=== PATIENT | female | born 1940 | race Caucasian/White ===

== ENCOUNTER 2017-03-25 06:20 | Emergency (ER) | payer BC, MEDICARE ==
[~2017-03-25] VITALS: Ht 162.6 cm; Wt 113.4 kg
[2017-03-25 10:12] LABS: Basophils # (auto) 0.1 uL; Basophils % (auto) 0.7 % (0.0-2.0); Eosinophils # (auto) 0.1 uL; Eosinophils % (auto) 1.1 % (0.0-7.0); Hematocrit 41.5 % (36.0-46.0); Lymphocytes # (auto) 1.5 uL; Lymphocytes % (auto) 20.1 % (10.0-50.0); Mean Corpuscular Hemoglobin 31.1 pg (28.0-32.0); Mean Corpuscular Hgb Conc. 33.7 g/dL (32.0-36.0); Mean Corpuscular Volume 92.4 fL (80.0-100.0); Mean Platelet Volume 8.9 fL (6.9-10.8); Monocytes # (auto) 0.6 uL; Monocytes % (auto) 8.2 % (0.0-12.0); Neutrophils # (auto) 5.1 uL; Neutrophils % (auto) 69.9 % (37.0-80.0); Platelet Count (auto) 181 10^3/uL (140-450); Red Cell Distribution Width 14.8 % (11.8-14.3); White Blood Cell 7.3 10^3/uL (4.4-10.8)
[2017-03-25 10:21] LABS: Albumin 2.7 g/dL (3.4-5.0); BUN/Creatinine Ratio 21.6; Calcium 8.2 mg/dL (8.5-10.1); Potassium 4.2 mmol/L (3.5-5.1)
[2017-03-25 10:23] LABS: INR 1.03 (0.9-1.15); Partial Thromboplastin Time 30.4 sec (22.64-33.71); Prothrombin Time 11.2 sec (9.37-12.3)
[2017-03-25 10:24] LABS: Bilirubin, Total 0.4 mg/dL (0.2-1.0); Total Protein 6.5 g/dL (6.4-8.2)
[2017-03-25] MEDS: HYDROcodone-ACET 5/325MG TAB PO ONE (10:27)
[2017-03-25] MEDS: CLOPIDOGREL BISULFATE 75 MG TAB PO ONE (13:17)
[2017-03-25 13:24] VITALS: BP 170/72
== END 2017-03-25 13:39 | disposition home or self-care (01) ==
LOC: ER 06:23
DX: D68.9 Coagulation defect, unspecified (principal); R04.0 Epistaxis; I50.9 Heart failure, unspecified; I11.0 Hypertensive heart disease with heart failure; I48.91 Unspecified atrial fibrillation; Z88.6 Allergy status to analgesic agent; Z88.8 Allergy status to other drugs, medicaments and biological substances
CPT/HCPCS: 36415; 71010; 80053; 85025; 85610; 85730; 93005; 94761

== ENCOUNTER 2017-07-17 06:17 | Inpatient (IN) | payer BC, OTHER ==
[~2017-07-17] VITALS: Ht 162.6 cm; Wt 119.9 kg
[2017-07-17] MEDS ORDERED: SODIUM CHLORIDE 0.9% 1,000 ML IV ONE (07:00)
[2017-07-17 07:54] LABS: Basophils # (auto) 0.2 uL; Basophils % (auto) 2.8 % (0.0-2.0); Eosinophils # (auto) 0.1 uL; Eosinophils % (auto) 1.3 % (0.0-7.0); Hematocrit 46.1 % (36.0-46.0); Hemoglobin 15.1 g/dL (12.2-16.2); Lymphocytes # (auto) 2.4 uL; Lymphocytes % (auto) 33.5 % (10.0-50.0); Mean Corpuscular Hemoglobin 30.1 pg (28.0-32.0); Mean Corpuscular Hgb Conc. 32.8 g/dL (32.0-36.0); Mean Corpuscular Volume 91.7 fL (80.0-100.0); Monocytes # (auto) 0.8 uL; Monocytes % (auto) 10.8 % (0.0-12.0); Neutrophils # (auto) 3.7 uL; Neutrophils % (auto) 51.6 % (37.0-80.0); Nucleated Red Blood Cells % 0.1 %; Platelet Count (auto) 270 10^3/uL (140-450); Red Blood Cells 5.03 10^6/uL (4.0-5.20); Red Cell Distribution Width 15.1 % (11.8-14.3); White Blood Cell 7.2 10^3/uL (4.4-10.8)
[2017-07-17] MEDS ORDERED: DILTIAZEM HCL 50 MG/10 ML VIAL IV ONE (07:54)
[2017-07-17] MEDS ORDERED: DILTIAZEM HCL 25 MG/5 ML VIAL IV ONE (08:00)
[2017-07-17 08:12] LABS: INR 0.93 (0.9-1.15); Partial Thromboplastin Time 27.3 sec (22.64-33.71); Prothrombin Time 10.1 sec (9.37-12.3)
[2017-07-17 08:21] LABS: Alanine Aminotransferase 13 U/L (13-56); Alkaline Phosphatase 27 U/L (45-117); Anion Gap 11 (5-15); Aspartate Aminotransferase 15 U/L (15-37); BUN/Creatinine Ratio 14.8; Bilirubin, Total 0.5 mg/dL (0.2-1.0); Blood Urea Nitrogen 12 mg/dL (7-18); Calcium 8.3 mg/dL (8.5-10.1); Carbon Dioxide 23 mmol/L (21-32); Chloride 108 mmol/L (98-107); GFR African American 89 mL/min; GFR Non-African American 73 mL/min; Glucose 99 mg/dL (74-106); Magnesium 2.4 mg/dL (1.6-2.6); Potassium 4.2 mmol/L (3.5-5.1); Sodium 142 mmol/L (136-145); Total Protein 7.2 g/dL (6.4-8.2)
[2017-07-17] MEDS ORDERED: IOHEXOL 350 MG/ML 100ML IJ ONE (10:42)
[2017-07-17] MEDS ORDERED: PROMETHAZINE HCL 25 MG/ML 1ML IV PRN (11:00)
[2017-07-17] MEDS ORDERED: AMIODARONE HCL 150 MG in D5W 5% 100 ML IV ONE (11:00)
[2017-07-17] MEDS ORDERED: TEMAZEPAM 15 MG CAP PO PRN (11:00)
[2017-07-17] MEDS ORDERED: LORazepam 0.5 MG TAB PO PRN (11:00)
[2017-07-17] MEDS ORDERED: ACETAMINOPHEN 500 MG TAB PO PRN (11:00)
[2017-07-17] MEDS ORDERED: LACTULOSE 20Gm/30ML SOLN PO PRN (11:00)
[2017-07-17] MEDS ORDERED: HYDROmorphone HCL 2 MG/ML VL IV PRN (11:00)
[2017-07-17] MEDS ORDERED: NITROGLYCERIN 0.4 MG SL TAB SL PRN (11:00)
[2017-07-17] MEDS ORDERED: AMIODARONE HCL 900 MG in DEXTROSE 500 ML IV SCH ×2 (11:01→17:01)
[2017-07-17] MEDS: CLOPIDOGREL BISULFATE 75 MG TAB PO SCH (11:15)
[2017-07-17] MEDS ORDERED: CARVEDILOL 3.125 MG TAB PO SCH (11:15)
[2017-07-17] MEDS ORDERED: ENOXAPARIN SOD 120 MG/0.8 ML SYRINGE SC SCH (11:30)
[2017-07-17] MEDS ORDERED: DIGOXIN (250MCG/ML) 2 ML AMPULE ONE (11:41)
[2017-07-17] MEDS ORDERED: CARVEDILOL 3.125 MG TAB PO ONE ×2 (11:45→12:00)
[2017-07-17] MEDS ORDERED: DIGOXIN (250MCG/ML) 2 ML AMPULE IV ONE (11:45)
[2017-07-17] MEDS: POTASSIUM CHL 20 Meq TABLET PO SCH (11:59)
[2017-07-17] MEDS: FUROSEMIDE 40 MG/4 ML VIAL IV SCH (11:59)
[2017-07-17] MEDS ORDERED: ENOXAPARIN SOD 120 MG/0.8 ML SYRINGE SC ONE (12:00)
[2017-07-17] MEDS ORDERED: LEVOTHYROXINE SODIUM 25 MCG TAB PO ONE (12:15)
[2017-07-17 13:41] LABS: Urine Bacteria NONE SEEN /hpf (None Seen); Urine Blood Negative /uL (Negative); Urine Specific Gravity 1.023 (1.001-1.035); Urine WBC <1 /hpf (0 - 5)
[2017-07-17] MEDS: HYDROcodone-ACET 5/325MG TAB PO PRN (19:48)
[2017-07-17] MEDS ORDERED: cloNIDine HCL 0.1 MG TAB ONE (21:38)
[2017-07-17] MEDS ORDERED: cloNIDine HCL 0.1 MG TAB PO ONE (21:45)
[2017-07-17 22:00] VITALS: BP 160/83
[2017-07-17] MEDS ORDERED: ATORVASTATIN 20 MG TAB PO SCH (22:00)
[2017-07-17] MEDS ORDERED: ENOXAPARIN SOD 80 MG/0.8ML SYRINGE SC SCH (22:00)
[2017-07-17] MEDS: CARVEDILOL 3.125 MG TAB PO SCH (22:00)
[2017-07-17 22:30] VITALS: BP 111/56
[2017-07-18 00:30] VITALS: BP 111/56
[2017-07-18 01:22] VITALS: BP 111/56
[2017-07-18] MEDS: HYDROcodone-ACET 5/325MG TAB PO PRN ×3 (02:12→09:34)
[2017-07-18] MEDS ORDERED: FURO40TA4 PO (04:43)
[2017-07-18] MEDS ORDERED: CLOP75TA28 PO (04:43)
[2017-07-18] MEDS ORDERED: HYDR-4683 PO (04:43)
[2017-07-18] MEDS ORDERED: ESTR1TAB3 PO (04:43)
[2017-07-18] MEDS ORDERED: METO25TA62 PO (04:43)
[2017-07-18] MEDS ORDERED: EZET10TA6 PO (04:43)
[2017-07-18] MEDS ORDERED: LOSA100T27 PO (04:43)
[2017-07-18] MEDS ORDERED: LEVO200T45 PO (04:43)
[2017-07-18] MEDS ORDERED: DRON400T PO (04:43)
[2017-07-18] MEDS ORDERED: FAMO-12 PO (04:43)
[2017-07-18] MEDS ORDERED: HYDR50TA15 PO (04:43)
[2017-07-18 05:45] LABS: Basophils # (auto) 0.1 uL; Basophils % (auto) 0.9 % (0.0-2.0); Eosinophils # (auto) 0.1 uL; Eosinophils % (auto) 1.9 % (0.0-7.0); Hematocrit 39.1 % (36.0-46.0); Hemoglobin 13.2 g/dL (12.2-16.2); Lymphocytes # (auto) 2.1 uL; Lymphocytes % (auto) 36.7 % (10.0-50.0); Mean Corpuscular Hgb Conc. 33.8 g/dL (32.0-36.0); Mean Corpuscular Volume 91.6 fL (80.0-100.0); Monocytes # (auto) 0.6 uL; Monocytes % (auto) 9.7 % (0.0-12.0); Neutrophils % (auto) 50.8 % (37.0-80.0); Nucleated Red Blood Cells % 0.1 %; Platelet Count (auto) 211 10^3/uL (140-450); Red Blood Cells 4.27 10^6/uL (4.0-5.20); Red Cell Distribution Width 14.9 % (11.8-14.3); White Blood Cell 5.8 10^3/uL (4.4-10.8)
[2017-07-18 06:08] LABS: Albumin 2.6 g/dL (3.4-5.0); BUN/Creatinine Ratio 17.2; Bilirubin, Total 0.3 mg/dL (0.2-1.0); Potassium 4.2 mmol/L (3.5-5.1); Total Protein 6.1 g/dL (6.4-8.2)
[2017-07-18 06:30] VITALS: BP 126/61
[2017-07-18] MEDS ORDERED: LEVOTHYROXINE SODIUM 112 MCG TAB PO SCH (07:00)
[2017-07-18] MEDS: CLOPIDOGREL BISULFATE 75 MG TAB PO SCH ×2 (09:30→09:34)
[2017-07-18] MEDS: POTASSIUM CHL 20 Meq TABLET PO SCH ×2 (09:30→09:34)
[2017-07-18] MEDS: CARVEDILOL 3.125 MG TAB PO SCH (09:30)
[2017-07-18] MEDS: FUROSEMIDE 40 MG/4 ML VIAL IV SCH (09:34)
[2017-07-18] MEDS ORDERED: AMIODARONE HCL 200 MG TAB PO SCH (10:00)
[2017-07-18] MEDS ORDERED: ASPirin 81 mg TAB PO SCH (10:00)
[2017-07-19 10:19] LABS: Free T3 2.3 pg/mL (2.3-4.2); Free T4 (Free Thyroxine) 1.47 ng/dL (0.89-1.76)
== END 2017-07-18 11:35 | disposition home or self-care (01) | DRG 308 ==
LOC: ER 06:17 → OVERFLOW 06:18 → TELE-WESTW 21:40
PROVIDERS: ADMIT Internal Medicine; ATTEND Internal Medicine
DX: I48.0 Paroxysmal atrial fibrillation (principal); I50.33 Acute on chronic diastolic (congestive) heart failure; E44.1 Mild protein-calorie malnutrition; E66.01 Morbid (severe) obesity due to excess calories; Z68.42 Body mass index [BMI] 45.0-49.9, adult; I11.0 Hypertensive heart disease with heart failure; I50.9 Heart failure, unspecified; E03.9 Hypothyroidism, unspecified; E78.5 Hyperlipidemia, unspecified; I25.10 Atherosclerotic heart disease of native coronary artery without angina pectoris; K21.9 Gastro-esophageal reflux disease without esophagitis; Z95.5 Presence of coronary angioplasty implant and graft; Z88.3 Allergy status to other anti-infective agents; Z88.8 Allergy status to other drugs, medicaments and biological substances
CPT/HCPCS: 36415; 71046; 71275; 80053; 80061; 81001; 82550; 83735; 83880; 84439; 84443; 84481; 84484; 85025; 85379; 85610; 85652; 85730; 86141; 93005; 93306; 94660; 94761; 96372; 96374; 96375; J7060

== ENCOUNTER 2018-05-23 16:55 | Emergency (ER) | payer OTHER ==
[~2018-05-23] VITALS: Ht 162.6 cm; Wt 108.9 kg
[~2018-05-23 16:55] MED LIST: APIX2.5T PO; CLOP75TA28 PO; CYA100I PO; ESTR1TAB3 PO; EZET10TA6 PO; FAMO-12 PO; FURO40TA4 PO; HYDR-4683 PO; HYDR50TA15 PO; LEVO200T7 PO; LOSA-49 PO; SOTA120T39 PO
[2018-05-23 17:00] VITALS: BP 144/85
[2018-05-23 17:51] LABS: INR 0.96 (0.9-1.15); Partial Thromboplastin Time 30.3 sec (23.78-33.04); Prothrombin Time 10.3 sec (9.27-12.13)
[2018-05-23 17:53] LABS: Alanine Aminotransferase 18 U/L (13-56); Albumin 3.2 g/dL (3.4-5.0); Anion Gap 10 (5-15); Aspartate Aminotransferase 17 U/L (15-37); Blood Urea Nitrogen 9 mg/dL (7-18); Calcium 8.3 mg/dL (8.5-10.1); Carbon Dioxide 23 mmol/L (21-32); Chloride 108 mmol/L (98-107); Glucose 101 mg/dL (74-106); Magnesium 1.9 mg/dL (1.6-2.6); Potassium 3.6 mmol/L (3.5-5.1); Sodium 141 mmol/L (136-145)
[2018-05-23 17:58] LABS: Alkaline Phosphatase 38 U/L (45-117); BUN/Creatinine Ratio 14.1; Bilirubin, Total 0.4 mg/dL (0.2-1.0); GFR African American 116 mL/min; GFR Non-African American 96 mL/min; Total Protein 7.3 g/dL (6.4-8.2)
[2018-05-23 18:15] LABS: Basophils # (auto) 0.1 uL; Basophils % (auto) 0.8 % (0.0-2.0); Eosinophils # (auto) 0 uL; Eosinophils % (auto) 0.5 % (0.0-7.0); Hematocrit 47.1 % (36.0-46.0); Hemoglobin 15.7 g/dL (12.2-16.2); Lymphocytes # (auto) 3.5 uL; Lymphocytes % (auto) 38.8 % (10.0-50.0); Mean Corpuscular Hgb Conc. 33.3 g/dL (32.0-36.0); Monocytes # (auto) 0.7 uL; Monocytes % (auto) 7.7 % (0.0-12.0); Neutrophils # (auto) 4.7 uL; Neutrophils % (auto) 52.2 % (37.0-80.0); Nucleated Red Blood Cells % 0.1 %; Platelet Count (auto) 286 10^3/uL (140-450); Red Blood Cells 5.24 10^6/uL (4.0-5.20); Red Cell Distribution Width 14.6 % (11.8-14.3)
[2018-05-23 18:15] LABS: Urine Bacteria NONE SEEN /hpf (None Seen); Urine Blood Negative /uL (Negative); Urine Specific Gravity 1.007 (1.001-1.035); Urine WBC 1 /hpf (0 - 5)
== END 2018-05-23 22:00 | disposition left against medical advice (07) ==
LOC: ER 16:55
DX: R07.9 Chest pain, unspecified (principal); R06.02 Shortness of breath; J02.9 Acute pharyngitis, unspecified; Z53.21 Procedure and treatment not carried out due to patient leaving prior to being seen by health care provider
CPT/HCPCS: 36415; 71045; 80053; 81001; 83735; 83880; 84484; 85025; 85610; 85730; 87040

== ENCOUNTER 2022-01-09 10:15 | Emergency (ER) | payer OTHER ==
[~2022-01-09] VITALS: Ht 162.6 cm; Wt 112.2 kg
[2022-01-09 10:15] VITALS: BP 151/73
[~2022-01-09 10:15] MED LIST changes: -ESTR1TAB3 PO; +ESTR1TAB6 PO; +EZET10TA22 PO; -EZET10TA6 PO; -HYDR-4683 PO; +HYDR-4833 PO; +LOSA-39 PO; -LOSA-49 PO
[2022-01-09 11:08] LABS: Basophils # (auto) 0.1 10 ^3/uL (0-0.2); Basophils % (auto) 0.8 % (0.0-2.0); Eosinophils # (auto) 0.1 10 ^3/uL (0-0.8); Hematocrit 44.4 % (36.0-46.0); Hemoglobin 14.8 g/dL (12.2-16.2); Lymphocytes # (auto) 1.5 10 ^3/uL (0.4-5.4); Lymphocytes % (auto) 21.6 % (10.0-50.0); Mean Corpuscular Hemoglobin 31.5 pg (28.0-32.0); Mean Corpuscular Hgb Conc. 33.3 g/dL (32.0-36.0); Mean Corpuscular Volume 94.6 fL (80.0-100.0); Monocytes # (auto) 0.6 10 ^3/uL (0-1.3); Monocytes % (auto) 8.8 % (0.0-12.0); Neutrophils # (auto) 4.8 10 ^3/uL (1.6-8.6); Neutrophils % (auto) 67.8 % (37.0-80.0); Nucleated Red Blood Cells % 0.1 %; Red Blood Cells 4.69 10^6/uL (4.0-5.20); Red Cell Distribution Width 15.9 % (11.8-14.3); White Blood Cell 7.1 10^3/uL (4.4-10.8)
[2022-01-09 11:15] LABS: INR 0.97 (0.9-1.15); Partial Thromboplastin Time 27.3 sec (24.6-33.4)
[2022-01-09 11:37] LABS: Albumin 3.7 g/dL (3.4-5.0); Calcium 8.4 mg/dL (8.5-10.1); Magnesium 2.2 mg/dL (1.6-2.6)
[2022-01-09 11:41] LABS: BUN/Creatinine Ratio 11.7; Bilirubin, Total 0.6 mg/dL (0.2-1.0); Total Protein 6.9 g/dL (6.4-8.2)
== END 2022-01-09 18:13 | disposition home or self-care (01) ==
LOC: ER 10:15
DX: R07.89 Other chest pain (principal); R19.7 Diarrhea, unspecified; I11.0 Hypertensive heart disease with heart failure; I50.9 Heart failure, unspecified; I25.2 Old myocardial infarction; I48.91 Unspecified atrial fibrillation; E03.9 Hypothyroidism, unspecified; Z90.710 Acquired absence of both cervix and uterus; Z79.899 Other long term (current) drug therapy; Z88.5 Allergy status to narcotic agent; Z88.8 Allergy status to other drugs, medicaments and biological substances; Z91.018 Allergy to other foods
CPT/HCPCS: 36415; 71045; 80053; 83735; 83880; 84484; 85025; 85610; 85730; 93005

== ENCOUNTER 2024-12-01 08:33 | Outpatient (CLI) | payer OTHER ==
[~2024-12-01] VITALS: Ht 162.6 cm; Wt 109.8 kg
[~2024-12-01 08:33] MED LIST changes: -HYDR50TA15 PO; +HYDR50TA47 PO; -LOSA-39 PO; +LOSA-535 PO
[2024-12-01] MEDS: REGADENOSON 0.4 MG/5 ML SYRG IV ONE ×2 (10:07→10:35)
--- NOTE | 2024-12-04 08:52 | DVHSR ---
APPROVED REPORT Exam: Nuclear Stress Test BMI: 0 Stress Test Details Stress Test: Pharmacologic stress testing performed using 0.4 mg of regadenoson per 5 mL given IV ov er 10 seconds. HR Resting HR: 72 bpmMax Heart Rate (APMHR): 138.012251 bpm Max HR Achieved: 88 bpmTarget HR (85% APMHR): 117.642638 bpm % of APMHR: 63.77 Recovery HR: 74 bpm BP Resting BP: 146/84 mmHg Recovery BP: 147/82 mmHg ECG Resting ECG: Sinus Rhythm Clinical Reason for Termination: Completed protocol Nurse Comments Recieved pt. from [email or web address]. A/Ox4 on RA. Connected to hall monitor, VS stable. PIV flushes well. Re viewed POC. Pt. verbalized understanding of procedure including risks and side effects, agrees for st ress testing. Lexiscan stress test performed per protocol. [email or web address] tech administered Cardiolite. Pt. tolerated well . Pt. stable, no change on exam. VS returned to baseline. Transferred to [email or web address] via wheelchair w/ te ch. Stress ECG Conclusion lvef 53% inferior wall ischemia noted GI artifact noted PVCs on ecg portion 2-3 couplets clinical correlate NM EXAM: Myocardial Perfusion REST/STRESS Imaging Protocol: Rest Tc-99m/Stress Tc-99m 1 day Resting Data Rest SPECT myocardial perfusion imaging was performed in supine position 60 minutes following the int ravenous injection of 12.5 mCi of Tc-99m Sestamibi. Time of rest injection: 0930 Time of rest imagin Administration Route: IV Administration Site: Left Arm Pharmacologic Stress Pharmacologic stress test was performed by injecting Regadenoson 0.4 mg IV push followed by the intra venous injection of 33.1 mCi of Tc-99m Sestamibi. Time of stress injection: 1100 Time of stress imagin Administration Route: IV Administration Site: Left Arm Gated Stress SPECT was performed 90 minutes after stress injection. The images were gated to evaluate regional wall motion and calculate left ventricular ejection fracti on. Nuclear Conclusion Nuclear Findings: positive for ischemia lvef 53% inferior wall ischemia noted GI artifact noted PVCs on ecg portion 2-3 couplets clinical correlate
== END 2024-12-01 17:00 | disposition home or self-care (01) ==
LOC: XYW 08:33
PROVIDERS: ATTEND Internal Medicine
DX: I25.9 Chronic ischemic heart disease, unspecified (principal); I25.10 Atherosclerotic heart disease of native coronary artery without angina pectoris; I61.9 Nontraumatic intracerebral hemorrhage, unspecified; I35.1 Nonrheumatic aortic (valve) insufficiency; I34.0 Nonrheumatic mitral (valve) insufficiency; I11.9 Hypertensive heart disease without heart failure; I07.1 Rheumatic tricuspid insufficiency; I48.91 Unspecified atrial fibrillation; E78.5 Hyperlipidemia, unspecified; R07.9 Chest pain, unspecified; R55 Syncope and collapse
CPT/HCPCS: 78452; 93017; A9500; J2785

== ENCOUNTER 2025-01-29 06:45 | Day surgery (SDC) | payer OTHER ==
[2025-01-29] VITALS (7 sets, daily range): BP systolic 101–124; BP diastolic 40–68; PULSE 59–71; RESP 12–18; O2SAT 95
[~2025-01-29] VITALS: Ht 162.6 cm; Wt 108.9 kg
[~2025-01-29 06:45] MED LIST changes: +ACET-1881 PO; +AMLO1TAB22 PO; -APIX2.5T PO; +CHOL1TAB42 PO; +CHOL4POW33 PO; +CLON0.1T PO; -CLOP75TA28 PO; -CYA100I PO; +CYCL0.05 EACHEYE; +DIPH25CA66 PO; -ESTR1TAB6 PO; -EZET10TA22 PO; -FAMO-12 PO; -HYDR-4833 PO; -HYDR50TA47 PO; +LEVO150T10 PO; -LEVO200T7 PO; -LOSA-535 PO; +NITR1SPR TL; +POTA-36 PO; -SOTA120T39 PO; +SOTA80TA PO
[2025-01-29] MEDS: IODIXANOL 320MG/ML 100ML BTL IV ONE (07:24)
[2025-01-29] MEDS: HEPARIN IN NS 1000Units/500mL 1,500 ML ONE (07:24)
[2025-01-29] MEDS: ANGIOMAX 250 MG VIAL IV ONE (08:06)
[2025-01-29] MEDS: LIDOCAINE 2%HCL (LOCAL ANESTH.) INJ 20ML MDV ONE (08:07)
[2025-01-29] MEDS: fentaNYL CITRATE 100 MCG/2 ML VL ONE (08:07)
[2025-01-29] MEDS: SODIUM CHL 0.9% 0 ML ONE (08:07)
[2025-01-29] MEDS: HEPARIN SODIUM (PORCINE) 5000 UNITS/ML 1ML VIAL ONE (08:07)
[2025-01-29] MEDS: MIDAZOLAM HCL 2MG/2ML 2ml VIAL (1mg/ml) ONE (08:07)
[2025-01-29] MEDS: VERAPAMIL 2.5MG/ML INJ 2ML VIAL IV ONE (08:07)
--- NOTE | 2025-01-29 08:50 | DVHOP2 ---
Operative Report Operative Report CARDIAC SHADE CLASSIFIER PROCEDURE REPORT [place], [place] Date of Service: Vice President Of Nursing: Jaylen Loving MD PROCEDURES PERFORMED: Coronary angiogram, left heart catheterization, conscious sedation administration and supervision, less than 15 minutes; fluoroscopy use and interpretation. PREOPERATIVE DIAGNOSES: Abnormal stress test with CCS class 3 angina, POSTOP DIAGNOSIS: cad DESCRIPTION OF PROCEDURE: The patient or appropriate family signed informed consent understanding the risks, benefits and alternatives of the procedure, they wished to proceed. The patient was brought to the cardiac dentures lab technician in [place] state. The patient was prepped in a sterile fashion. Sedation was used per cardiac cath protocol. I administered 2 mL of 2% lidocaine to the right wrist. With an antegrade front wall puncture. I cannulated the right radial artery and placed a 6-[place] Glidesheath slender. Next, an intra-arterial spasmolytic was administered. Next, a - 5[place] cathete were used for coronary angiogram and LVEDP measurement and pressure pullback. At the completion of procedure, all guides and wires were removed, and there were no immediate complications. 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 LEFT MAIN: large size left main, it bifurcates into LAD and circumflex. patent. distal LM has mild plaque from ostial cx stent placed at [facility]> CIRCUMFLEX: large dominant caliber vessel coming off the left main with no flow limiting stenosis in the prox part. patent stent. mid CX has mild plaque. it gives off large inferolateral OM distally with 40% stenosis and LPL branch LAD: LAD is a moderate caliber vessel coming of the left main. ostial and prox LAD has 50% diffuse stenosis, distal LAD has a focal 40-50% stenosis LVEDP 15 CONCLUSIONS: 1. patent CX stent 1. moderate non critical CAD 2. NSR PLAN: Aggressive risk factor modification and medical management for the patient. JAYLEN LOVING MD Jan 29, 2025 08:50
[2025-01-29] MEDS: methylPREDNISolone SOD SUCC 125 MG/2 ML VL ONE (08:55)
== END 2025-01-29 12:41 | disposition home or self-care (01) ==
LOC: CATH 06:45
PROVIDERS: ATTEND Internal Medicine
DX: R94.39 Abnormal result of other cardiovascular function study (principal); I25.118 Atherosclerotic heart disease of native coronary artery with other forms of angina pectoris; I25.2 Old myocardial infarction; I11.0 Hypertensive heart disease with heart failure; I50.9 Heart failure, unspecified; E78.5 Hyperlipidemia, unspecified; J44.9 Chronic obstructive pulmonary disease, unspecified; Z79.899 Other long term (current) drug therapy; Z95.5 Presence of coronary angioplasty implant and graft
CPT/HCPCS: 93458; C1769; C1894; J1644; J2250; J2919; J3010; J7030; Q9967; 99152